=== PATIENT | female | born 1930 | race Caucasian/White ===

== ENCOUNTER 2016-11-25 16:06 | Emergency (ER) | payer MEDICARE, OTHER ==
[2016-11-25 16:12] VITALS: BP 125/66
--- NOTE | 2016-11-25 18:39 | ER Document Report ---
ED Extremity Problem, Lower - General Chief Complaint: Knee Injury Stated Complaint: KNEE INJURY Time seen by provider: 18:35 Mode of Arrival: Ambulatory Information source: Patient Notes: 86-year-old female presents to ED for right knee pain. She states she twisted her knee this morning when trying to get up. She has a history of diabetes with neuropathy. She had a knee support on her knee. Patient uses a walker to walk at home TRAVEL OUTSIDE OF THE [place] IN LAST 30 DAYS: No - HPI Location: Knee - Right knee pain minimal swelling noted Occurred: This morning Where: Home, Indoors Onset/Duration: Intermittent Quality of pain: Burning Severity: Moderate Pain Level: 3 Context: Twisted - States she thinks she twisted it this morning when she got up Recent injury: No Associated symptoms: Painful ambulation Exacerbated by: Movement, Walking Relieved by: Elevation, Ice, Rest - Related Data Allergies/Adverse Reactions: No Known Allergies Allergy (Unverified 12/14/10 18:16) Past Medical History - General Information source: Patient - Social History Smoking Status: Current Every Day Smoker Cigarette use (# per day): Yes - pack per day Chew tobacco use (# tins/day): No Smoking Education Provided: Yes - less than 1 minute Frequency of alcohol use: None Drug Abuse: None Lives with: Alone Family History: Reviewed & Not Pertinent Patient has suicidal ideation: No Patient has homicidal ideation: No - Past Medical History Cardiac Medical History: Reports: Hx Hypercholesterolemia, Hx Hypertension Pulmonary Medical History: Reports: Hx COPD EENT Medical History: Reports: None Neurological Medical History: Reports: Hx Cerebrovascular Accident. Denies: Hx Seizures Endocrine Medical History: Reports: Hx Diabetes Mellitus Type 2 Renal/ Medical History: Reports: None Malignancy Medical History: Reports: None Musculoskeltal Medical History: Reports Hx Arthritis, Reports Hx Gout Skin Medical History: Reports None Psychiatric Medical History: Reports: None Traumatic Medical History: Reports: None Infectious Medical History: Reports: None Past Surgical History: Reports: Hx Appendectomy, Hx Cholecystectomy - 2013, Hx Gynecologic Surgery - Laparoscopic surgery to help her in getting , Hx Tonsillectomy - Immunizations Hx Diphtheria, Pertussis, Tetanus Vaccination: Yes Hx Pneumococcal Vaccination: 12/17/06 Review of Systems - Review of Systems Constitutional: No symptoms reported EENT: No symptoms reported Cardiovascular: No symptoms reported Respiratory: No symptoms reported Gastrointestinal: No symptoms reported Genitourinary: No symptoms reported Female Genitourinary: No symptoms reported Musculoskeletal: Joint pain - Right knee pain, Muscle pain Skin: No symptoms reported Hematologic/Lymphatic: No symptoms reported Neurological/Psychological: No symptoms reported Physical Exam - Vital signs Vitals: Temp Pulse Resp BP Pulse Ox 98.4 F 93 18 125/66 96 11/25/16 16:11 11/25/16 16:11 11/25/16 16:11 11/25/16 16:11 11/25/16 16:11 Interpretation: Normal - General General appearance: Appears well, Alert - HEENT Head: Normocephalic, Atraumatic Eyes: Normal Pupils: PERRL - Respiratory Respiratory status: No respiratory distress Chest status: Nontender Breath sounds: Normal Chest palpation: Normal - Cardiovascular Rhythm: Regular Heart sounds: Normal auscultation Murmur: No - Abdominal Inspection: Normal Distension: No distension Bowel sounds: Normal Tenderness: Nontender Organomegaly: No organomegaly - Back Back: Normal, Nontender - Extremities General upper extremity: Normal inspection, Nontender, Normal color, Normal ROM , Normal temperature General lower extremity: Normal color. No: Kyara's sign Knee: Tender, Pain with ROM, Patellar tendon intact. No: Abrasion, Deformity, Dislocation, Drawer's test instability, Ecchymosis, Instability, Joint effusion , Laxity with varus stress, Popliteal fossa tender, Tender joint line, Unable to bear weight - Neurological Neuro grossly intact: Yes Cognition: Normal Orientation: AAOx4 Bradley Coma Scale Eye Opening: Spontaneous Bradley Coma Scale Verbal: Oriented Bradley Coma Scale Motor: Obeys Commands Bradley Coma Scale Total: 15 Speech: Normal Motor strength normal: LUE, RUE, LLE, RLE Sensory: Normal - Psychological Associated symptoms: Normal affect, Normal mood - Skin Skin Temperature: Warm Skin Moisture: Dry Skin Color: Normal Course - Re-evaluation Re-evalutation: 11/25/16 20:35 X-ray discussed with patient and family and written report given to family to take home for follow-up with [facility] doctor. - Vital Signs Vital signs: Temp Pulse Resp BP Pulse Ox 98.4 F 93 18 125/66 96 11/25/16 16:11 11/25/16 16:11 11/25/16 16:11 11/25/16 16:11 11/25/16 16:11 - Diagnostic Test Radiology reviewed: Image reviewed, Reports reviewed Discharge - Discharge Clinical Impression: Pain in right knee Qualifiers: Chronicity: chronic Qualified Code(s): M25.561 - Pain in right knee Condition: Stable Disposition: HOME, SELF-CARE Additional Instructions: Arthralgia Arthralgia is pain in the joints. We use the word arthralgia to describe joint pain where there's no history of injury, no known joint disease, and the joints are normal to examination. Arthralgia can be a symptom of an acute illness, such as influenza, hepatitis, or serum sickness. Sometimes the joint pain comes before any other symptoms. Arthralgia can also be an early symptom of joint disease, such as rheumatoid arthritis or lupus. If arthralgia is accompanied by an acute illness that explains the joint pain, such as mononucleosis, no further testing needs to be done. When there's no clear reason for the pain, tests may be done to see if there's an inflammatory disease of the joints. The usual treatment is anti-inflammatory medication, such as ibuprofen. Joint aches can be soothed with a heating pad or hot compress. If joints remain painful more than a few days, you'll need testing and followup. Return if a joint becomes swollen, red, or severely painful. Acetaminophen Acetaminophen may be taken for pain relief or fever control. It's much safer than aspirin, offering a wider range of "safe" dosages. It is safe during . Some brand names are Tylenol, Panadol, Datril, Anacin 3, Tempra, and Liquiprin. Acetaminophen can be repeated every four hours. The following are maximum recommended dosages: WEIGHT Dose Drops Elixir Chewable( 80mg) (LBS.) drprs=droppers tsp=teaspoon 6 40 mg .4 ml (1/2) 6-11 80 mg .8 ml (full) 1/2 tsp 1 tab 12-16 120 mg 1 1/2 drprs 3/4 tsp 1 1/2 tabs 17-23 160 mg 2 drprs 1 tsp 2 tabs 24-30 240 mg 3 drprs 1 1/2 tsp 3 tabs 30-35 320 mg 2 tsp 4 tabs 36-41 360 mg 2 1/4 tsp 4 1 /2 tabs 42-47 400 mg 2 1/2 tsp 5 tabs 48-53 480 mg 3 tsp 6 tabs 54-59 520 mg 3 1/4 tsp 6 1 /2 tabs 60-64 560 mg 3 1/2 tsp 7 tabs 65-70 600 mg 3 3/4 tsp 7 1 /2 tabs 71-76 640 mg 4 tsp 8 tabs 77-82 720 mg 4 1/2 tsp 9 tabs 83-88 800 mg 5 tsp 10 tabs >89 pounds or adults 650 mg to 900 mg Acetaminophen can be repeated every four hours. Maximum daily dose not to exceed 4000 mg. These maximum recommended dosages are slightly higher than the dosages written on the product container, but these dosages are very safe and well below the toxic dosage for acetaminophen. FOLLOW-UP CARE: If you have been referred to a physician for follow-up care, call the physician s office for an appointment as you were instructed or within the next two days. If you experience worsening or a significant change in your symptoms, notify the physician immediately or return to the Emergency Department at any time for re-evaluation. Referrals: GUERRERO SHIRLEY MD [Primary Care Provider] - Follow up as needed
== END 2016-11-25 18:42 | disposition home or self-care (01) ==
LOC: ER 16:06
DX: M25.561 Pain in right knee (principal); M79.89 Other specified soft tissue disorders; E11.40 Type 2 diabetes mellitus with diabetic neuropathy, unspecified; I10 Essential (primary) hypertension; J44.9 Chronic obstructive pulmonary disease, unspecified; F17.210 Nicotine dependence, cigarettes, uncomplicated; Z71.6 Tobacco abuse counseling; Z86.73 Personal history of transient ischemic attack (TIA), and cerebral infarction without residual deficits
CPT/HCPCS: 99283

== ENCOUNTER 2017-04-30 12:37 | Inpatient (IN) | payer MEDICARE, OTHER ==
[2017-04-30] MEDS ORDERED: NORMAL SALINE 1000 ML 1,000 ML IV ONE ×2 (12:50→13:38)
--- NOTE | 2017-04-30 12:54 | ER Document Report ---
ED GI/ - General Chief Complaint: General Weakness Stated Complaint: WEAKNESS Time Seen by Provider: 04/30/17 12:49 Information source: Patient Notes: 86-year-old female that presents with EMS secondary to multiple bouts of nonbloody diarrhea last evening with a low-grade fever. Vomiting 1. Patient states she could not sleep all evening secondary to multiple bouts of diarrhea. She denies to me any abdominal pain, cramping, flank pain, or dysuria. She denies any recent antibiotics. [place] TRAVEL OUTSIDE OF THE [place] IN LAST 30 DAYS: No - HPI Patient complains to provider of: Diarrhea Onset: Other - See above Timing/Duration: Gradual Quality of pain: No pain Severity at maximum: Moderate Severity in ED: Moderate Pain Level: Denies Location: Other - See above Vaginal bleeding (Compared to normal period): None Sexual history: Inactive Associated symptoms: Other - See above Exacerbated by: Denies Relieved by: Denies Similar symptoms previously: No - Related Data Allergies/Adverse Reactions: No Known Allergies Allergy (Verified 04/30/17 12:56) Past Medical History - Social History Smoking Status: Current Every Day Smoker Cigarette use (# per day): Yes Chew tobacco use (# tins/day): No Smoking Education Provided: No Frequency of alcohol use: None Family History: Reviewed & Not Pertinent - Past Medical History Cardiac Medical History: Reports: Hx Hypercholesterolemia, Hx Hypertension Pulmonary Medical History: Reports: Hx COPD Denies: Hx Tuberculosis Neurological Medical History: Reports: Hx Cerebrovascular Accident. Denies: Hx Seizures Endocrine Medical History: Reports: Hx Diabetes Mellitus Type 2 Renal/ Medical History: Denies: Hx Peritoneal Dialysis Musculoskeltal Medical History: Reports Hx Arthritis, Reports Hx Gout Skin Medical History: Denies Hx MRSA Past Surgical History: Reports: Hx Appendectomy, Hx Cholecystectomy - 2013, Hx Gynecologic Surgery - Laparoscopic surgery to help her in getting , Hx Tonsillectomy. Denies: Hx Hysterectomy, Hx Pacemaker - Immunizations Hx Diphtheria, Pertussis, Tetanus Vaccination: Yes Hx Pneumococcal Vaccination: 12/17/06 Review of Systems - Review of Systems Constitutional: Fever EENT: denies: Eye discharge, Nose discharge Cardiovascular: denies: Chest pain, Palpitations Respiratory: Cough. denies: Short of breath Gastrointestinal: Vomiting. denies: Abdomen distended, Abdominal pain, Blood streaked bowels Genitourinary: denies: Dysuria Musculoskeletal: denies: Leg swelling Skin: Other - no hives. denies: Rash Neurological/Psychological: Other - no slurred speech -: Yes All other systems reviewed and negative Physical Exam - Vital signs Vitals: Resp 20 04/30/17 12:37 Notes: Reviewed vital signs and nursing note as charted by RN. CONSTITUTIONAL: Patient does appear drowsy but responds to all questions appropriately HEAD: Normocephalic; atraumatic EYES: Sclerae non-icteric ENT: Normal nose; no rhinorrhea; moist mucous membranes NECK: Supple without meningismus; non-tender; no cervical lymphadenopathy, no masses CARD: Regular rate and rhythm; no murmurs, no clicks, no rubs, no gallops; symmetric distal pulses RESP: Normal chest excursion without splinting or tachypnea; breath sounds clear and equal bilaterally; no wheezes, no rhonchi, no rales ABD/GI: Normal bowel sounds; non-distended; soft, non-tender to deep palpation of all 4 quadrants of the abdomen with no rebound or guarding. No abdominal bruits or palpable masses BACK: The back appears normal and is non-tender to palpation, there is no CVA tenderness EXT: Normal ROM in all joints; non-tender to palpation; no cyanosis, no effusions, no edema SKIN: Normal color for age and race; warm; dry; good turgor; capillary refill < 2 seconds; no acute lesions noted NEURO: CN II through XII intact; moves all extremities equally; Motor and sensory function intact PSYCH: The patient's mood and manner are appropriate. Grooming and personal hygiene are appropriate. Course - Re-evaluation Re-evalutation: 04/30/17 12:53 Given the history and physical examination, we will provide a liter of fluid, obtain a liver panel, lipase, urinalysis, and reassess the patient. Patient currently has no focal neurological deficits. Blood pressure is stable and the patient is mildly tachycardic. Temperature is recorded. 04/30/17 13:12 EKG shows a heart rate of 105, sinus tachycardia, left axis deviation, no obvious ST elevation or depression. Old EKG shows no acute change 04/30/17 13:40 White blood cell count and lactic acid is recorded. We have added another liter of fluid to make at 30 cc/kg. I have started the patient on Zosyn. I have added a CT scan of the abdomen and pelvis. 04/30/17 14:51 Chest x-ray shows normal heart, normal mediastinum, no fractures, normal lung parson, no pneumothorax. 04/30/17 15:12 CT scan of the abdomen and pelvis as recorded. I spoke to Dr. pena the radiologist who states he sees some air in the bladder wall consistent with a severe urinary tract infection. I have provided Rocephin. To the previous antibiotic. He also states he sees a small kidney cyst like lesion. I have relayed this to the admitting doctor, Dr. Salazar. - Vital Signs Vital signs: Temp Pulse Resp BP Pulse Ox 99.2 F 20 92/43 L 96 04/30/17 12:40 04/30/17 13:22 04/30/17 13:22 04/30/17 13:22 - Laboratory Result Diagrams: 04/30/17 12:41 04/30/17 12:41 Laboratory results interpreted by me: 04/30/17 04/30/17 04/30/17 12:41 12:41 12:41 WBC 22.0 H Plt Count 131 L Seg Neuts % (Manual) 82 H Band Neutrophils % 6 H Lymphocytes % (Manual) 7 L Abs Neuts (Manual) 19.3 H BUN 25 H Est GFR (Non-Af Amer) 54 L Glucose 213 H Lactic Acid 2.9 H Total Protein 6.0 L Albumin 3.4 L Urine Protein Urine Blood Urine Urobilinogen Ur Leukocyte Esterase 04/30/17 13:20 WBC Plt Count Seg Neuts % (Manual) Band Neutrophils % Lymphocytes % (Manual) Abs Neuts (Manual) BUN Est GFR (Non-Af Amer) Glucose Lactic Acid Total Protein Albumin Urine Protein 100 H Urine Blood MODERATE H Urine Urobilinogen 2.0 H Ur Leukocyte Esterase SMALL H Critical Care Note - Critical Care Note Total time excluding time spent on procedures (mins): 35 Discharge - Discharge Clinical Impression: Sepsis due to urinary tract infection Condition: Serious Disposition: ADMITTED INPATIENT Admitting Provider: [facility] Unit Admitted: [facility]
[2017-04-30 13:08] LABS: PROTHROMBIN TIME 14.9 SEC (11.4-15.4)
[2017-04-30 13:13] LABS: VENOUS BLOOD BASE EXCESS -0.1 mmol/L; VENOUS BLOOD HCO3 25.2 mmol/L (20-32); VENOUS BLOOD PCO2 43.7 mmHg (35-63); VENOUS BLOOD PH 7.38 (7.30-7.42)
[2017-04-30 13:18] LABS: HEMATOCRIT 45.9 % (36.0-47.0); HGB HCT DIFFERENCE -0.9; MEAN CORPUSCULAR HEMOGLOBIN 30.4 pg (27.0-33.4); MEAN CORPUSCULAR HGB CONC 32.7 g/dL (32.0-36.0); MEAN CORPUSCULAR VOLUME 93 fl (80-97); RED BLOOD COUNT 4.93 10^6/uL (3.72-5.28); RED CELL DISTRIBUTION WIDTH 13.5 % (11.5-14.0)
[2017-04-30 13:31] LABS: ALANINE AMINOTRANSFERASE 33 U/L (9-52); ALBUMIN 3.4 g/dL (3.5-5.0); ALKALINE PHOSPHATASE 58 U/L (38-126); ANION GAP 12 (5-19); ASPARTATE AMINO TRANSFERASE 23 U/L (14-36); BILIRUBIN,DIRECT 0.4 mg/dL (0.0-0.4); BILIRUBIN,TOTAL 1.2 mg/dL (0.2-1.3); BLOOD UREA NITROGEN 25 mg/dL (7-20); CARBON DIOXIDE 26 mmol/L (22-30); CHLORIDE 100 mmol/L (98-107); CREATININE RESULT 0.98 mg/dL (0.52-1.25); GLUCOSE 213 mg/dL (75-110); POTASSIUM 3.7 mmol/L (3.6-5.0); SODIUM 138.2 mmol/L (137-145)
[2017-04-30] MEDS ORDERED: PIPERACILLIN/TAZOBACTAM 3.375 GM VIAL IV ONE (13:39)
--- NOTE | 2017-04-30 13:50 | RADIOLOGY REPORT (SQ) ---
EXAM DESCRIPTION: CHEST SINGLE VIEW COMPLETED DATE/TIME: 04/30/2017 1:14 pm REASON FOR STUDY: bed 1 sepsis protocol COMPARISON: August 2016 EXAM PARAMETERS: NUMBER OF VIEWS: One view. TECHNIQUE: Single frontal radiographic view of the chest acquired. RADIATION DOSE: NA LIMITATIONS: None. FINDINGS: LUNGS AND PLEURA: No opacities, masses or pneumothorax. No pleural effusion. Again there is evidence for obstructive lung disease. MEDIASTINUM AND HILAR STRUCTURES: No masses. Contour normal. HEART AND VASCULAR STRUCTURES: Heart normal in size. Normal vasculature. BONES: No acute findings. HARDWARE: None in the chest. OTHER: No other significant finding. IMPRESSION: No significant interval change. No acute changes. Other findings as noted above TECHNICAL DOCUMENTATION: JOB ID: [id number]
[2017-04-30 13:53] LABS: BASOPHILS % (MANUAL) 0 % (0-2); EOSINOPHILS % (MANUAL) 0 % (0-6); TOTAL CELLS COUNTED 100
[2017-04-30 13:54] LABS: APPEARANCE,URINE SLIGHTLY-CLOUDY; BILIRUBIN,URINE NEGATIVE (NEGATIVE); GLUCOSE, URINE NEGATIVE (NEGATIVE); KETONES,URINE NEGATIVE (NEGATIVE); LEUKOCYTE ESTERASE,URINE SMALL (NEGATIVE); NITRITE,URINE NEGATIVE (NEGATIVE); PROTEIN,URINE 100 mg/dL (NEGATIVE)
[2017-04-30 14:04] LABS: BAND NEUTROPHILS % (MANUAL) 6 % (3-5)
[2017-04-30 14:05] LABS: LYMPHOCYTES % (MANUAL) 7 % (13-45)
[2017-04-30 14:06] LABS: TOXIC VACUOLATION PRESENT
[2017-04-30 14:08] LABS: RBC MORPHOLOGY COMMENT NORMO-CYTIC/CHROMIC; TOXIC GRANULATION SLIGHT
[2017-04-30] MEDS ORDERED: CEFTRIAXONE RTU 1 GM/D5W 50 ML IV ONE (14:49)
--- NOTE | 2017-04-30 15:19 | RADIOLOGY REPORT (SQ) ---
EXAM DESCRIPTION: CT ABD/PELVIS WITH IV ONLY COMPLETED DATE/TIME: 04/30/2017 2:43 pm REASON FOR STUDY: 1, diarrhea; fever; elevated lactate COMPARISON: None. TECHNIQUE: CT scan of the abdomen and pelvis performed using helical scanning technique with dynamic intravenous contrast injection. No oral contrast. Images reviewed with lung, soft tissue, and bone windows. Reconstructed coronal and sagittal MPR images reviewed. Delayed images for evaluation of the urinary system also acquired. All images stored on PACS. All CT scanners at this facility use dose modulation, iterative reconstruction, and/or weight based d osing when appropriate to reduce radiation dose to as low as reasonably achievable (ALARA). [facility]: Dose Right [facility]: CareDose [facility]: Dose Right [facility]: Teradose 4D [facility]: [employer] CONTRAST TYPE AND DOSE: contrast/concentration: Isovue mg/ml; Total Contrast Delivered: 79.0 ml; To tej Saline Delivered: 65.3 ml RENAL FUNCTION: Creatinine 0.98 RADIATION DOSE: Up-to-date CT equipment and radiation dose reduction techniques were employed. CTDIv ol: 12.3 - 16.1 mGy. DLP: 1430 mGy-cm.. LIMITATIONS: None. FINDINGS: LOWER CHEST: Predominately linear densities are identified in the lung bases most consiste nt with atelectatic changes. LIVER: Normal size. No masses. No dilated ducts. SPLEEN: Normal size. No focal lesions. PANCREAS: No masses. No significant calcifications. No adjacent inflammation or peripancreatic fluid collections. Pancreatic duct not dilated. GALLBLADDER: Status post cholecystectomy. ADRENAL GLANDS: No significant masses or asymmetry. RIGHT KIDNEY AND URETER: A 2.1 cm in diameter relative low density mass is identified in the upper po le of the right kidney with CT numbers higher than would be anticipated for a simple cyst. This coul d represent a complicated cyst or solid mass. The possibility of a renal abscess cannot be excluded. There are couple other tiny relative low density areas which are too small to further characterize by CT. No significant calcifications. No hydronephrosis or hydroureter. LEFT KIDNEY AND URETER: No solid masses. There are a couple tiny relative low density areas which ar e too small to further characterize by CT. No significant calcifications. No hydronephrosis or hy droureter. AORTA AND VESSELS: No aneurysm. No dissection. Renal arteries, SMA, celiac without stenosis. RETROPERITONEUM: No retroperitoneal adenopathy, hemorrhage or masses. BOWEL AND PERITONEAL CAVITY: No masses or inflammatory changes. No free fluid or peritoneal masses. APPENDIX: Not identified PELVIS: No mass. No free fluid. There is fairly diffuse air within the bladder wall consistent with emphysematous cystitis. Small amount of air is also identified within the bladder lumen itself. ABDOMINAL WALL: No masses. No hernias. BONES: Degenerative changes are identified in the lumbar spine. OTHER: No other significant finding. 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 A 2.1 cm in d iameter relative low density mass is identified in the upper pole of the right kidney with CT numbers higher than would be anticipated for simple cyst. This could represent a complicated cyst or solid mass. The possibility of an renal abscess cannot be excluded. Other findings as noted above COMMENT: Pertinent findings on the imaging study reported as a CRITICAL RESULT to MEGGAN MENA MD at 15:12 on 04/30/2017. Category of Critical Result: Emphysematous cystitis TECHNICAL DOCUMENTATION: JOB ID: [id number] Quality ID # [id number]: Final reports with documentation of one or more dose reduction techniques (e.g., Au tomated exposure control, adjustment of the mA and/or kV according to patient size, use of iterative reconstruction technique) 2010 [employer] All Rights Reserved
[2017-04-30] MEDS ORDERED: DEXTROSE 40% GEL 15 GM TUBE X 2 PO PRN (17:35)
[2017-04-30] MEDS ORDERED: DEXTROSE 50%-WATER SYRINGE 12.5 GM/25 ML DOSE IV PRN (17:35)
[2017-04-30] MEDS ORDERED: DEXTROSE 50%-WATER SYRINGE 25 GM/50 ML DOSE IV PRN (17:35)
[2017-04-30] MEDS ORDERED: GLUCAGON,HUMAN RECOMB 1 MG INJ IM PRN (17:35)
[2017-04-30] MEDS ORDERED: DEXTROSE 40% GEL 15 GM TUBE PO PRN (17:35)
[2017-04-30] MEDS: CIPROFLOXACIN 400 MG/D5W RTU 400 MG/200 ML RTUPB IV SCH (18:32)
[2017-04-30] MEDS: ATORVASTATIN CALCIUM 40 MG TABLET PO SCH (21:49)
[2017-04-30] MEDS: CILOSTAZOL 100 MG TABLET PO SCH (21:50)
[2017-04-30] MEDS: GABAPENTIN 300 MG CAPSULE PO SCH (21:50)
[2017-04-30] MEDS: INSULIN GLARGINE,HUM.REC.ANLOG 300 UNIT/3 ML INSULN.PEN SUBCUT SCH (21:57)
[2017-05-01] MEDS: CIPROFLOXACIN 400 MG/D5W RTU 400 MG/200 ML RTUPB IV SCH ×2 (06:22→17:46)
[2017-05-01] MEDS: GABAPENTIN 300 MG CAPSULE PO SCH ×3 (06:23→22:35)
[2017-05-01] MEDS ORDERED: INSULIN ASPART 12 UNIT SUBCUT SCH (08:00)
[2017-05-01] MEDS: INSULIN LISPRO 100 UNIT/ML 3 ML VIAL SUBCUT SCH ×3 (08:36→17:13)
[2017-05-01] MEDS: INSULIN LISPRO 100 UNIT/ML 3 ML VIAL SUBCUT PRN ×2 (08:37→13:17)
[2017-05-01] MEDS ORDERED: (PENDING PHARMACY ID) (Telmisartan/Hydrochlorothiazid [Micardis Hct 80-25 Mg Tablet] 1 TAB PO SCH (10:00)
[2017-05-01] MEDS: HYDROCHLOROTHIAZIDE 25 MG TABLET PO SCH (10:57)
[2017-05-01] MEDS: ASPIRIN 81 MG TABLET, CHEWABLE PO SCH (10:58)
[2017-05-01] MEDS: AMLODIPINE BESYLATE 5 MG TABLET PO SCH (10:58)
[2017-05-01] MEDS: METFORMIN HCL 500 MG TABLET PO SCH (10:59)
[2017-05-01] MEDS: CLOPIDOGREL BISULFATE 75 MG TABLET PO SCH (11:00)
[2017-05-01] MEDS: LOSARTAN POTASSIUM 50 MG TABLET PO SCH (11:01)
[2017-05-01] MEDS: ALLOPURINOL 100 MG TABLET PO SCH (11:01)
[2017-05-01] MEDS: CILOSTAZOL 100 MG TABLET PO SCH ×2 (11:02→22:35)
--- NOTE | 2017-05-01 20:52 | PDOC H&P ---
History of Present Illness Admission Date/PCP: 04/30/17 15:18 GUERRERO SHIRLEY MD History of Present Illness: SJ LOZOYA is a 86 year old female, She is Dr. Shirley's patient, she came to the emergency room for evaluation of many episodes of passage of non bloody diarrhea, in the emergency room she was evaluated, part of the evaluation included blood work and also CT scan of the abdomen and pelvis with IV contrast , the hemogram showed elevated white cell count, 22,[address] scan showed an incidental finding of a 2.1 cm size relative low density mass in the upper pole of the right kidney,differential diagnosis include a solid mass versus a complicated cyst and a renal abscess could not be completely excluded also found was a fairly diffuse air within the urinary bladder consistent with emphysematous cystitis. Patient is a poor historian she is of advanced age still actively smoking cigarettes, she is a diabetic. I spoke to the son ,he stated that she recently had a vascular procedure done in [facility] in [place], [place] because she has peripheral vascular disease. Because of the severe leukocytosis and the CAT scan findings of severe cystitis and also the abnormal urinalysis the emergency room physician is recommending inpatient care for this patient. Past Medical History Cardiac Medical History: Reports: Hyperlipidema, Hypertension, Peripheral Vascular Disease Pulmonary Medical History: Reports: Chronic Obstructive Pulmonary Disease (COPD) Denies: Tuberculosis Neurological Medical History: Denies: Seizures Endocrine Medical History: Reports: Diabetes Mellitus Type 2 Musculoskeltal Medical History: Reports: Arthritis, Gout Past Surgical History Past Surgical History: Reports: Appendectomy, Cholecystectomy - 2013, Tonsillectomy Denies: Hysterectomy, Pacemaker Social History Smoking Status: Current Every Day Smoker Cigarettes Packs Per Day: 1.5 Frequency of Alcohol Use: None Hx Recreational Drug Use: No Drugs: None Hx Prescription Drug Abuse: No Family History Family History: Reviewed & Not Pertinent Parental Family History Reviewed: Yes Children Family History Reviewed: Yes Sibling(s) Family History Reviewed.: Yes Medication/Allergy Home Medications: Allopurinol [Zyloprim 100 mg Tablet] 100 mg PO DAILY 04/30/17 Amlodipine Besylate [Norvasc 5 mg Tablet] 5 mg PO DAILY 04/30/17 Aspirin [Aspirin 81 mg Chewable Tablet] 81 mg PO DAILY 04/30/17 Atorvastatin Calcium [Lipitor 40 mg Tablet] 40 mg PO QHS 04/30/17 Cilostazol 50 mg PO Q12 04/30/17 Clopidogrel Bisulfate [Plavix 75 mg Tablet] 75 mg PO DAILY 04/30/17 Gabapentin [Neurontin 300 mg Capsule] 300 mg PO Q8 04/30/17 Insulin Aspart [Novolog Flexpen] 12 unit SUBCUT AC 04/30/17 Insulin Glargine,Hum.rec.anlog [Lantus Solostar] 35 unit SQ QHS 04/30/17 Metformin HCl [Glucophage] 1,000 mg PO DAILY 04/30/17 Telmisartan/Hydrochlorothiazid [Micardis HCT 80-25 mg Tablet] 1 tab PO DAILY Allergies/Adverse Reactions: No Known Allergies Allergy (Verified 04/30/17 12:56) Review of Systems Constitutional: ABSENT: chills, fever(s), headache(s), weight gain, weight loss Eyes: ABSENT: visual disturbances Ears: ABSENT: hearing changes Cardiovascular: ABSENT: chest pain, dyspnea on exertion, edema, orthropnea, palpitations Respiratory: ABSENT: cough, hemoptysis Gastrointestinal: PRESENT: diarrhea Genitourinary: PRESENT: dysuria Musculoskeletal: ABSENT: joint swelling Integumentary: ABSENT: rash, wounds Neurological: ABSENT: abnormal gait, abnormal speech, confusion, dizziness, focal weakness, syncope Psychiatric: ABSENT: anxiety, depression, homidical ideation, suicidal ideation Endocrine: ABSENT: cold intolerance, heat intolerance, menstrual abnormalities, polydipsia, polyuria Hematologic/Lymphatic: ABSENT: easy bleeding, easy bruising, lymphadenopathy Physical Exam Vital Signs: Temp Pulse Resp BP Pulse Ox 100.1 F 97 18 119/30 L 94 05/01/17 19:27 05/01/17 19:27 05/01/17 19:27 05/01/17 19:27 05/01/17 19:27 Intake & Output 04/30/17 05/01/17 05/02/17 06:59 06:59 06:59 Intake Total 410 1170 Output Total 550 900 Balance -140 270 Weight 70.4 kg General appearance: PRESENT: well-developed Head exam: PRESENT: atraumatic, normocephalic Eye exam: PRESENT: conjunctiva pink, EOMI, PERRLA. ABSENT: scleral icterus Ear exam: PRESENT: normal external ear exam Mouth exam: PRESENT: moist, tongue midline Neck exam: PRESENT: full ROM Respiratory exam: PRESENT: decreased breath sounds Cardiovascular exam: PRESENT: RRR, +S1, +S2 Pulses: PRESENT: normal dorsalis pedis pul, +2 pedal pulses bilateral Vascular exam: PRESENT: normal capillary refill GI/Abdominal exam: PRESENT: normal bowel sounds, soft Rectal exam: PRESENT: deferred Neurological exam: PRESENT: alert Skin exam: PRESENT: dry, intact, warm. ABSENT: cyanosis, rash Results Impressions: Chest X-Ray 04/30/17 12:40 IMPRESSION: No significant interval change. No acute changes. Other findings as noted above Abdomen/Pelvis CT 04/30/17 13:39 IMPRESSION: Air is identified in bladder wall consistent with emphysematous cystitis. A 2.1 cm in diameter relative low density mass is identified in the upper pole of the right kidney with CT numbers higher than would be anticipated for simple cyst. This could represent a complicated cyst or solid mass. The possibility of an renal abscess cannot be excluded. 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
--- NOTE | 2017-05-01 21:00 | PDOC PROGRESS REPORT ---
Subjective Progress Note for:: 05/01/17 Subjective:: She was seen by the bedside, the blood culture is growing gram-negative rods, the urine culture is growing gram-negative rods. The CAT scan findings was discussed with the son and the patient ,there is a suspicious mass that was incidentally found on the upper pole of the right kidney, the CAT scan could not differentiate this mass form a complicated cyst or a solid mass MRI of this mass to be obtained. Physical Exam Vital Signs: Temp Pulse Resp BP Pulse Ox 100.1 F 97 18 119/30 L 94 05/01/17 19:27 05/01/17 19:27 05/01/17 19:27 05/01/17 19:27 05/01/17 19:27 Intake & Output 04/30/17 05/01/17 05/02/17 06:59 06:59 06:59 Intake Total 410 1170 Output Total 550 900 Balance -140 270 Weight 70.4 kg General appearance: PRESENT: no acute distress Eye exam: PRESENT: PERRLA Respiratory exam: PRESENT: clear to auscultation betzaida Cardiovascular exam: PRESENT: +S1, +S2 GI/Abdominal exam: PRESENT: soft Neurological exam: PRESENT: alert Results Impressions: Chest X-Ray 04/30/17 12:40 IMPRESSION: No significant interval change. No acute changes. Other findings as noted above Abdomen/Pelvis CT 04/30/17 13:39 IMPRESSION: Air is identified in bladder wall consistent with emphysematous cystitis. A 2.1 cm in diameter relative low density mass is identified in the upper pole of the right kidney with CT numbers higher than would be anticipated for simple cyst. This could represent a complicated cyst or solid mass. The possibility of an renal abscess cannot be excluded. 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
[2017-05-01] MEDS: ATORVASTATIN CALCIUM 40 MG TABLET PO SCH (22:35)
[2017-05-01] MEDS: INSULIN GLARGINE,HUM.REC.ANLOG 300 UNIT/3 ML INSULN.PEN SUBCUT SCH (22:40)
[2017-05-01 22:42] LABS: URINE BARBITURATES SCREEN NEGATIVE; URINE METHADONE SCREEN NEGATIVE; URINE OPIATES LOW NEGATIVE; URINE PHENCYCLIDINE SCREEN NEGATIVE
[2017-05-01 23:16] LABS: LIPASE 42.9 U/L (23-300)
[2017-05-01 23:30] LABS: TROPONIN I 0.064 ng/mL
[2017-05-01 23:48] LABS: THYROID STIMULATING HORMONE 2.97 uIU/mL (0.47-4.68)
--- NOTE | 2017-05-02 01:23 | RADIOLOGY REPORT (SQ) ---
EXAM DESCRIPTION: MRI ABDOMEN COMBO COMPLETED DATE/TIME: 05/01/2017 9:53 pm REASON FOR STUDY: MRI RIGHT KIDNEY COMPARISON: CT dated 04/30/2017. TECHNIQUE: Multiplanar multisequence imaging performed without and with contrast including sagittal, axial and coronal T2, axial T1, axial gradient fat sat T1, axial, sagittal and coronal fat sat T1 po st contrast. CONTRAST TYPE AND DOSE: 20 mL Prohance. RENAL FUNCTION: GFR > 60. LIMITATIONS: None. FINDINGS: LIVER: Normal size. No masses. No dilated ducts. CBD normal. SPLEEN: Normal size. No focal lesions. PANCREAS: No masses. No adjacent inflammation or peripancreatic fluid collections. Pancreatic duct no t dilated. GALLBLADDER: Surgically absent. ADRENAL GLANDS: No significant masses or asymmetry. RIGHT KIDNEY AND URETER: 1.6 cm in the anterior renal cortex with generally fluid signal. Peripheral decreased signal likely due to hemosiderin or other blood products. No enhancement on postcontrast images. 1.2 cm lesion in the posterior renal cortex with intermediate signal and questionable periph eral enhancement on post-contrast imaging. Additional nonenhancing cortical lesions with signal cons istent with simple cysts. No hydronephrosis. LEFT KIDNEY AND URETER: Nonenhancing cortical lesions with signal of simple cysts. No solid masses. No hydronephrosis. AORTA AND VESSELS: No aneurysm. No dissection. Renal arteries, SMA, celiac without stenosis. RETROPERITONEUM: No retroperitoneal adenopathy, hemorrhage or masses. BOWEL: No visualized masses. No inflammation. No significant dilatation. ABDOMINAL WALL AND PERITONEUM: No hernias. No free fluid. BONES: No acute or significant findings. OTHER: No other significant finding. IMPRESSION: MULTIPLE CORTICAL CYSTS IN BOTH KIDNEYS. NONENHANCING 1.6 CM LESION IN THE ANTERIOR COR JOSE OF THE RIGHT KIDNEY PROBABLY DUE TO A HEMORRHAGIC CYST. 1.2 CM LESION IN THE POSTERIOR CORTEX OF THE RIGHT KIDNEY HAS POSSIBLE PERIPHERAL ENHANCEMENT. POSSIBLY COMPLEX CYST BUT CANNOT EXCLUDE A SM ALL TUMOR. RECOMMEND FOLLOWUP MRI IN 6 MONTHS FOR RE-EVALUATION. TECHNICAL DOCUMENTATION: JOB ID: [id number] [employer]- All Rights Reserved
[2017-05-02] MEDS: CIPROFLOXACIN 400 MG/D5W RTU 400 MG/200 ML RTUPB IV SCH (05:35)
[2017-05-02] MEDS: GABAPENTIN 300 MG CAPSULE PO SCH ×3 (05:36→22:56)
[2017-05-02 05:43] LABS: ABSOLUTE EOSINOPHILS # (AUTO) 0.1 10^3/uL (0.0-0.6); ABSOLUTE LYMPHOCYTES (AUTO) 1.1 10^3/uL (0.5-4.7); BASOPHILS % (AUTO) 0.2 % (0-2); EOSINOPHILS % (AUTO) 0.9 % (0-6); HEMATOCRIT 41.6 % (36.0-47.0); HEMOGLOBIN 13.5 g/dL (12.0-15.5); HGB HCT DIFFERENCE -1.1; LYMPHOCYTES % (AUTO) 7.1 % (13-45); MEAN CORPUSCULAR HGB CONC 32.4 g/dL (32.0-36.0); MEAN CORPUSCULAR VOLUME 93 fl (80-97); MONOCYTES % (AUTO) 6.8 % (3-13); RED BLOOD COUNT 4.49 10^6/uL (3.72-5.28); RED CELL DISTRIBUTION WIDTH 13.5 % (11.5-14.0); WHITE BLOOD COUNT 15.3 10^3/uL (4.0-10.5)
--- NOTE | 2017-05-02 05:58 | EKG REPORT ---
SEVERITY:- OTHERWISE NORMAL ECG - SINUS TACHYCARDIA BORDERLINE LEFT AXIS DEVIATION : Confirmed by: Fauzia Montero MD 02-May-2017 05:57:57
[2017-05-02 06:05] LABS: ALANINE AMINOTRANSFERASE 35 U/L (9-52); ALBUMIN 2.7 g/dL (3.5-5.0); ALKALINE PHOSPHATASE 50 U/L (38-126); ANION GAP 6 (5-19); ASPARTATE AMINO TRANSFERASE 24 U/L (14-36); BILIRUBIN,DIRECT 0.3 mg/dL (0.0-0.4); BILIRUBIN,TOTAL 0.6 mg/dL (0.2-1.3); BLOOD UREA NITROGEN 26 mg/dL (7-20); CALCIUM 9.7 mg/dL (8.4-10.2); CARBON DIOXIDE 29 mmol/L (22-30); CHLORIDE 104 mmol/L (98-107); CHOLESTEROL 80.81 mg/dL (0-200); Direct HDL 25 mg/dL (>40); GLUCOSE 137 mg/dL (75-110); POTASSIUM 3.6 mmol/L (3.6-5.0); TOTAL PROTEIN 5.2 g/dL (6.3-8.2); TRIGLYCERIDES 138 mg/dL (<150)
[2017-05-02 06:18] LABS: DIRECT LDL < 30 mg/dL (<100)
[2017-05-02] MEDS: METFORMIN HCL 500 MG TABLET PO SCH (08:53)
[2017-05-02] MEDS: CILOSTAZOL 100 MG TABLET PO SCH ×2 (08:54→22:55)
[2017-05-02] MEDS: HYDROCHLOROTHIAZIDE 25 MG TABLET PO SCH (08:54)
[2017-05-02] MEDS: ALLOPURINOL 100 MG TABLET PO SCH (08:55)
[2017-05-02] MEDS: CLOPIDOGREL BISULFATE 75 MG TABLET PO SCH (08:55)
[2017-05-02] MEDS: ASPIRIN 81 MG TABLET, CHEWABLE PO SCH (08:55)
[2017-05-02] MEDS: ENOXAPARIN SODIUM INJ 40 MG/0.4 ML DISP.SYRIN SUBCUT SCH (08:55)
[2017-05-02] MEDS: INSULIN LISPRO 100 UNIT/ML 3 ML VIAL SUBCUT SCH ×3 (09:01→18:16)
[2017-05-02] MEDS: LOSARTAN POTASSIUM 50 MG TABLET PO SCH (11:19)
[2017-05-02] MEDS: AMLODIPINE BESYLATE 5 MG TABLET PO SCH (11:20)
[2017-05-02] MEDS: INSULIN LISPRO 100 UNIT/ML 3 ML VIAL SUBCUT PRN ×2 (11:21→18:16)
[2017-05-02] MEDS: CEFAZOLIN SODIUM 2 GM in DEXTROSE 5%-WATER 100 ML IV SCH (17:14)
[2017-05-02] MEDS ORDERED: DILTIAZEM HCL/D5W 125 MG/125 ML RTUINJ IV ONE (19:03)
[2017-05-02] MEDS ORDERED: DILTIAZEM HCL/D5W 125 MG/125 ML RTUINJ IV PRN (19:45)
--- NOTE | 2017-05-02 21:51 | PDOC PROGRESS REPORT ---
Subjective Progress Note for:: 05/02/17 Subjective:: She was seen by the bedside, the urine culture grew Klebsiella , MRI of the kidney was done today the lesion that was found on CAT scan that was not well characterized, on the MRI it came back as a cyst repeat MRI in 6 months was suggested or recommended. The noted episode of narrow complex tachycardia on the telemetry, there was spontaneous conversion to sinus rhythm. Physical Exam Vital Signs: Temp Pulse Resp BP Pulse Ox 98.3 F 78 22 H 105/36 L 90 L 05/02/17 19:51 05/02/17 21:11 05/02/17 19:51 05/02/17 21:11 05/02/17 19:51 Intake & Output 05/01/17 05/02/17 05/03/17 06:59 06:59 06:59 Intake Total 400 1870 922 Output Total 550 1100 Balance -150 770 922 Weight 70.4 kg 71.4 kg General appearance: PRESENT: no acute distress Eye exam: PRESENT: PERRLA Respiratory exam: PRESENT: clear to auscultation betzaida Cardiovascular exam: PRESENT: +S1, +S2 GI/Abdominal exam: PRESENT: soft Neurological exam: PRESENT: alert Results Laboratory Results: 05/02/17 04:51 05/02/17 04:51 05/01/17 05/01/17 05/01/17 22:50 22:50 22:50 WBC RBC Hgb Hct MCV MCH MCHC RDW Plt Count Seg Neutrophils % Lymphocytes % Monocytes % Eosinophils % Basophils % Absolute Neutrophils Absolute Lymphocytes Absolute Monocytes Absolute Eosinophils Absolute Basophils Sodium Potassium Chloride Carbon Dioxide Anion Gap BUN Creatinine Est GFR ( Amer) Est GFR (Non-Af Amer) Glucose Calcium Total Bilirubin AST ALT Alkaline Phosphatase Ammonia < 8.7 L Total Protein Albumin Triglycerides Cholesterol LDL Cholesterol Direct VLDL Cholesterol HDL Cholesterol Amylase 65 Lipase 42.9 TSH 2.97 Free T4 1.12 05/02/17 05/02/17 04:51 04:51 WBC 15.3 H RBC 4.49 Hgb 13.5 Hct 41.6 MCV 93 MCH 30.0 MCHC 32.4 RDW 13.5 Plt Count 108 L Seg Neutrophils % 85.0 H Lymphocytes % 7.1 L Monocytes % 6.8 Eosinophils % 0.9 Basophils % 0.2 Absolute Neutrophils 13.0 H Absolute Lymphocytes 1.1 Absolute Monocytes 1.0 Absolute Eosinophils 0.1 Absolute Basophils 0.0 Sodium 139.0 Potassium 3.6 Chloride 104 Carbon Dioxide 29 Anion Gap 6 BUN 26 H Creatinine 0.80 Est GFR ( Amer) > 60 Est GFR (Non-Af Amer) > 60 Glucose 137 H Calcium 9.7 Total Bilirubin 0.6 AST 24 ALT 35 Alkaline Phosphatase 50 Ammonia Total Protein 5.2 L Albumin 2.7 L Triglycerides 138 Cholesterol 80.81 LDL Cholesterol Direct < 30 VLDL Cholesterol 28.0 HDL Cholesterol 25 L Amylase Lipase TSH Free T4 05/01/17 05/01/17 22:50 22:50 Creatine Kinase 127 Troponin I 0.064 NT-Pro-B Natriuret Pep 2060 H Impressions: Chest X-Ray 04/30/17 12:40 IMPRESSION: No significant interval change. No acute changes. Other findings as noted above Abdomen/Pelvis CT 04/30/17 13:39 IMPRESSION: Air is identified in bladder wall consistent with emphysematous cystitis. A 2.1 cm in diameter relative low density mass is identified in the upper pole of the right kidney with CT numbers higher than would be anticipated for simple cyst. This could represent a complicated cyst or solid mass. The possibility of an renal abscess cannot be excluded. Other findings as noted above Abdomen MRI 05/01/17 00:00 IMPRESSION: MULTIPLE CORTICAL CYSTS IN BOTH KIDNEYS. NONENHANCING 1.6 CM LESION IN THE ANTERIOR CORTEX OF THE RIGHT KIDNEY PROBABLY DUE TO A HEMORRHAGIC CYST. 1.2 CM LESION IN THE POSTERIOR CORTEX OF THE RIGHT KIDNEY HAS POSSIBLE PERIPHERAL ENHANCEMENT. POSSIBLY COMPLEX CYST BUT CANNOT EXCLUDE A SMALL TUMOR. RECOMMEND FOLLOWUP MRI IN 6 MONTHS FOR RE-EVALUATION. Assessment & Plan - Diagnosis (1) Sepsis due to urinary tract infection Is this a current diagnosis for this admission?: Yes (2) Diabetes mellitus Qualifiers: Diabetes mellitus type: type 2 Diabetes mellitus complication status: without complication Diabetes mellitus petroleum terminal plant operator insulin use: without petroleum terminal plant operator use Qualified Code(s): E11.9 - Type 2 diabetes mellitus without complications Is this a current diagnosis for this admission?: Yes (3) Urinary tract infection due to Klebsiella species Is this a current diagnosis for this admission?: YesPlan: Continue IV antibiotic (4) Cyst of kidney, acquired Is this a current diagnosis for this admission?: Yes (5) Narrow complex tachycardia Is this a current diagnosis for this admission?: Yes
[2017-05-02] MEDS: ATORVASTATIN CALCIUM 40 MG TABLET PO SCH (22:55)
[2017-05-02] MEDS: INSULIN GLARGINE,HUM.REC.ANLOG 300 UNIT/3 ML INSULN.PEN SUBCUT SCH (23:04)
[2017-05-03 05:23] LABS: ABSOLUTE BASOPHILS # (AUTO) 0.1 10^3/uL (0.0-0.2); ABSOLUTE EOSINOPHILS # (AUTO) 0.2 10^3/uL (0.0-0.6); ABSOLUTE LYMPHOCYTES (AUTO) 1.2 10^3/uL (0.5-4.7); ABSOLUTE MONOCYTES (AUTO) 0.9 10^3/uL (0.1-1.4); ABSOLUTE NEUT (AUTO) 8.1 10^3/uL (1.7-8.2); BASOPHILS % (AUTO) 0.6 % (0-2); EOSINOPHILS % (AUTO) 1.7 % (0-6); HEMATOCRIT 40.5 % (36.0-47.0); HEMOGLOBIN 13.7 g/dL (12.0-15.5); HGB HCT DIFFERENCE 0.6; LYMPHOCYTES % (AUTO) 11.4 % (13-45); MEAN CORPUSCULAR HEMOGLOBIN 31.3 pg (27.0-33.4); MEAN CORPUSCULAR HGB CONC 33.7 g/dL (32.0-36.0); MEAN CORPUSCULAR VOLUME 93 fl (80-97); MONOCYTES % (AUTO) 8.6 % (3-13); RED BLOOD COUNT 4.37 10^6/uL (3.72-5.28); RED CELL DISTRIBUTION WIDTH 13.4 % (11.5-14.0); SEGMENTED NEUTROPHILS % (AUTO) 77.7 % (42-78); WHITE BLOOD COUNT 10.4 10^3/uL (4.0-10.5)
[2017-05-03 05:37] LABS: ALANINE AMINOTRANSFERASE 35 U/L (9-52); ALBUMIN 2.6 g/dL (3.5-5.0); ALKALINE PHOSPHATASE 53 U/L (38-126); ANION GAP 6 (5-19); ASPARTATE AMINO TRANSFERASE 20 U/L (14-36); BILIRUBIN,DIRECT 0.3 mg/dL (0.0-0.4); BILIRUBIN,TOTAL 0.7 mg/dL (0.2-1.3); BLOOD UREA NITROGEN 21 mg/dL (7-20); CARBON DIOXIDE 29 mmol/L (22-30); CHLORIDE 102 mmol/L (98-107); CREATININE RESULT 0.79 mg/dL (0.52-1.25); GLUCOSE 195 mg/dL (75-110); POTASSIUM 4.1 mmol/L (3.6-5.0); SODIUM 136.8 mmol/L (137-145); TOTAL PROTEIN 5.1 g/dL (6.3-8.2)
[2017-05-03] MEDS: CEFAZOLIN SODIUM 2 GM in DEXTROSE 5%-WATER 100 ML IV SCH ×2 (06:28→17:19)
[2017-05-03] MEDS: GABAPENTIN 300 MG CAPSULE PO SCH ×3 (06:28→21:57)
[2017-05-03] MEDS: ENOXAPARIN SODIUM INJ 40 MG/0.4 ML DISP.SYRIN SUBCUT SCH (09:39)
[2017-05-03] MEDS: CILOSTAZOL 100 MG TABLET PO SCH ×2 (09:41→21:57)
[2017-05-03] MEDS: ALLOPURINOL 100 MG TABLET PO SCH (09:41)
[2017-05-03] MEDS: CLOPIDOGREL BISULFATE 75 MG TABLET PO SCH (09:42)
[2017-05-03] MEDS: ASPIRIN 81 MG TABLET, CHEWABLE PO SCH (09:42)
[2017-05-03] MEDS: AMLODIPINE BESYLATE 5 MG TABLET PO SCH (09:42)
[2017-05-03] MEDS: METFORMIN HCL 500 MG TABLET PO SCH (09:42)
[2017-05-03] MEDS: INSULIN LISPRO 100 UNIT/ML 3 ML VIAL SUBCUT SCH ×3 (09:44→17:20)
[2017-05-03] MEDS: HYDROCHLOROTHIAZIDE 25 MG TABLET PO SCH (11:50)
[2017-05-03] MEDS: INSULIN LISPRO 100 UNIT/ML 3 ML VIAL SUBCUT PRN (11:54)
--- NOTE | 2017-05-03 15:14 | PDOC PROGRESS REPORT ---
Subjective Progress Note for:: 05/03/17 Subjective:: She was seen by the bedside, she had episode of paroxysmal atrial fibrillation last night, rate control was achieved with intravenous Cardizem, she is presently normal sinus rhythm she is cardioverted back to sinus rhythm from A. fib. She also has proteinuria associated with hypoalbuminemia, urine protein creatinine ratio is ordered, this correlates with 24 urine protein. She was admitted for the management of Klebsiella bacteremia due to urinary tract infection. Physical Exam Vital Signs: Temp Pulse Resp BP Pulse Ox 98.5 F 83 18 128/36 H 94 05/03/17 10:53 05/03/17 10:53 05/03/17 10:53 05/03/17 10:53 05/03/17 10:53 Intake & Output 05/02/17 05/03/17 05/04/17 06:59 06:59 06:59 Intake Total 1870 922 120 Output Total 1100 200 Balance 770 722 120 Weight 71.4 kg 71.9 kg General appearance: PRESENT: obese Head exam: PRESENT: atraumatic, normocephalic Eye exam: PRESENT: PERRLA Neck exam: PRESENT: full ROM Respiratory exam: PRESENT: clear to auscultation betzaida Cardiovascular exam: PRESENT: RRR, +S1, +S2 Pulses: PRESENT: normal dorsalis pedis pul, +2 pedal pulses bilateral Vascular exam: PRESENT: normal capillary refill GI/Abdominal exam: PRESENT: normal bowel sounds, soft Rectal exam: PRESENT: deferred Neurological exam: PRESENT: alert, CN II-XII grossly intact. ABSENT: motor sensory deficit Results Laboratory Results: 05/03/17 04:35 05/03/17 04:35 05/03/17 05/03/17 04:35 04:35 WBC 10.4 RBC 4.37 Hgb 13.7 Hct 40.5 MCV 93 MCH 31.3 MCHC 33.7 RDW 13.4 Plt Count 120 L Seg Neutrophils % 77.7 Lymphocytes % 11.4 L Monocytes % 8.6 Eosinophils % 1.7 Basophils % 0.6 Absolute Neutrophils 8.1 Absolute Lymphocytes 1.2 Absolute Monocytes 0.9 Absolute Eosinophils 0.2 Absolute Basophils 0.1 Sodium 136.8 L Potassium 4.1 Chloride 102 Carbon Dioxide 29 Anion Gap 6 BUN 21 H Creatinine 0.79 Est GFR ( Amer) > 60 Est GFR (Non-Af Amer) > 60 Glucose 195 H Calcium 10.0 Total Bilirubin 0.7 AST 20 ALT 35 Alkaline Phosphatase 53 Total Protein 5.1 L Albumin 2.6 L 05/01/17 05/01/17 22:50 22:50 Creatine Kinase 127 Troponin I 0.064 NT-Pro-B Natriuret Pep 2060 H Impressions: Chest X-Ray 04/30/17 12:40 IMPRESSION: No significant interval change. No acute changes. Other findings as noted above Abdomen/Pelvis CT 04/30/17 13:39 IMPRESSION: Air is identified in bladder wall consistent with emphysematous cystitis. A 2.1 cm in diameter relative low density mass is identified in the upper pole of the right kidney with CT numbers higher than would be anticipated for simple cyst. This could represent a complicated cyst or solid mass. The possibility of an renal abscess cannot be excluded. Other findings as noted above Abdomen MRI 05/01/17 00:00 IMPRESSION: MULTIPLE CORTICAL CYSTS IN BOTH KIDNEYS. NONENHANCING 1.6 CM LESION IN THE ANTERIOR CORTEX OF THE RIGHT KIDNEY PROBABLY DUE TO A HEMORRHAGIC CYST. 1.2 CM LESION IN THE POSTERIOR CORTEX OF THE RIGHT KIDNEY HAS POSSIBLE PERIPHERAL ENHANCEMENT. POSSIBLY COMPLEX CYST BUT CANNOT EXCLUDE A SMALL TUMOR. RECOMMEND FOLLOWUP MRI IN 6 MONTHS FOR RE-EVALUATION. Assessment & Plan - Diagnosis (1) Sepsis due to urinary tract infection Is this a current diagnosis for this admission?: Yes (2) Diabetes mellitus Qualifiers: Diabetes mellitus type: type 2 Diabetes mellitus complication status: without complication Diabetes mellitus terminal system operator insulin use: without residential use Qualified Code(s): E11.9 - Type 2 diabetes mellitus without complications Is this a current diagnosis for this admission?: Yes (3) Urinary tract infection due to Klebsiella species Is this a current diagnosis for this admission?: Yes (4) Cyst of kidney, acquired Is this a current diagnosis for this admission?: Yes (5) Narrow complex tachycardia Is this a current diagnosis for this admission?: Yes (6) Proteinuria Qualifiers: Proteinuria type: unspecified Qualified Code(s): R80.9 - Proteinuria , unspecified Is this a current diagnosis for this admission?: Yes - Plan Summary Plan Summary: She will continue IV antibiotic, present regimen will be continued
[2017-05-03] MEDS: LOSARTAN POTASSIUM 50 MG TABLET PO SCH (17:21)
[2017-05-03 17:48] LABS: URINE CREATININE 54.9 mg/dL (15-278); URINE PROTEIN 12.5 mg/dL (<12)
[2017-05-03] MEDS: ATORVASTATIN CALCIUM 40 MG TABLET PO SCH (21:56)
[2017-05-03] MEDS: INSULIN GLARGINE,HUM.REC.ANLOG 300 UNIT/3 ML INSULN.PEN SUBCUT SCH (21:56)
--- NOTE | 2017-05-04 03:51 | RADIOLOGY REPORT (SQ) ---
EXAM DESCRIPTION: CHEST SINGLE VIEW COMPLETED DATE/TIME: 05/04/2017 3:36 am REASON FOR STUDY: SOB COMPARISON: 04/30/2017 NUMBER OF VIEWS: One view. TECHNIQUE: Single frontal radiographic view of the chest acquired. LIMITATIONS: None. FINDINGS: LUNGS AND PLEURA: No opacities, masses or pneumothorax. No pleural effusion. Attenuated bl ood vessels and flattened wilson-diaphragms. MEDIASTINUM AND HILAR STRUCTURES: No masses. Contour normal. HEART AND VASCULAR STRUCTURES: Heart normal in size. Normal vasculature. BONES: No acute findings. HARDWARE: None in the chest. OTHER: No other significant finding. IMPRESSION: COPD. NO ACUTE RADIOGRAPHIC FINDING IN THE CHEST. TECHNICAL DOCUMENTATION: JOB ID: [id number] [employer]- All Rights Reserved
[2017-05-04 04:53] LABS: ABSOLUTE BASOPHILS # (AUTO) 0.1 10^3/uL (0.0-0.2); ABSOLUTE EOSINOPHILS # (AUTO) 0.2 10^3/uL (0.0-0.6); ABSOLUTE LYMPHOCYTES (AUTO) 1.1 10^3/uL (0.5-4.7); ABSOLUTE MONOCYTES (AUTO) 1.2 10^3/uL (0.1-1.4); ABSOLUTE NEUT (AUTO) 7.7 10^3/uL (1.7-8.2); BASOPHILS % (AUTO) 0.7 % (0-2); EOSINOPHILS % (AUTO) 2.1 % (0-6); HEMATOCRIT 40.8 % (36.0-47.0); HEMOGLOBIN 13.8 g/dL (12.0-15.5); HGB HCT DIFFERENCE 0.6; LYMPHOCYTES % (AUTO) 10.8 % (13-45); MEAN CORPUSCULAR HEMOGLOBIN 31.3 pg (27.0-33.4); MEAN CORPUSCULAR HGB CONC 33.8 g/dL (32.0-36.0); MEAN CORPUSCULAR VOLUME 93 fl (80-97); MONOCYTES % (AUTO) 11.4 % (3-13); RED CELL DISTRIBUTION WIDTH 13.3 % (11.5-14.0); WHITE BLOOD COUNT 10.3 10^3/uL (4.0-10.5)
[2017-05-04 05:04] LABS: ALANINE AMINOTRANSFERASE 22 U/L (9-52); ALBUMIN 2.8 g/dL (3.5-5.0); ALKALINE PHOSPHATASE 53 U/L (38-126); ANION GAP 6 (5-19); ASPARTATE AMINO TRANSFERASE 18 U/L (14-36); BILIRUBIN,DIRECT 0.3 mg/dL (0.0-0.4); BILIRUBIN,TOTAL 0.6 mg/dL (0.2-1.3); BLOOD UREA NITROGEN 21 mg/dL (7-20); CALCIUM 10.3 mg/dL (8.4-10.2); CARBON DIOXIDE 32 mmol/L (22-30); CHLORIDE 99 mmol/L (98-107); CREATININE RESULT 0.78 mg/dL (0.52-1.25); GLUCOSE 216 mg/dL (75-110); SODIUM 136.6 mmol/L (137-145); TOTAL PROTEIN 5.4 g/dL (6.3-8.2)
[2017-05-04 05:07] LABS: POTASSIUM 4.1 mmol/L (3.6-5.0)
[2017-05-04] MEDS: GABAPENTIN 300 MG CAPSULE PO SCH (05:20)
[2017-05-04] MEDS: CEFAZOLIN SODIUM 2 GM in DEXTROSE 5%-WATER 100 ML IV SCH (05:20)
[2017-05-04] MEDS: METFORMIN HCL 500 MG TABLET PO SCH (08:43)
[2017-05-04] MEDS: CLOPIDOGREL BISULFATE 75 MG TABLET PO SCH (08:43)
[2017-05-04] MEDS: ASPIRIN 81 MG TABLET, CHEWABLE PO SCH (08:44)
[2017-05-04] MEDS: CILOSTAZOL 100 MG TABLET PO SCH (08:44)
[2017-05-04] MEDS: LOSARTAN POTASSIUM 50 MG TABLET PO SCH (08:44)
[2017-05-04] MEDS: ALLOPURINOL 100 MG TABLET PO SCH (08:44)
[2017-05-04] MEDS: AMLODIPINE BESYLATE 5 MG TABLET PO SCH (08:45)
[2017-05-04] MEDS: HYDROCHLOROTHIAZIDE 25 MG TABLET PO SCH (08:45)
[2017-05-04] MEDS: ENOXAPARIN SODIUM INJ 40 MG/0.4 ML DISP.SYRIN SUBCUT SCH (08:45)
[2017-05-04] MEDS: INSULIN LISPRO 100 UNIT/ML 3 ML VIAL SUBCUT SCH (08:50)
[2017-05-04] MEDS: INSULIN LISPRO 100 UNIT/ML 3 ML VIAL SUBCUT PRN (08:50)
--- NOTE | 2017-05-04 11:23 | PDOC DISCHARGE SUMMARY ---
General - Admit/Disc Date/PCP Admission Date/Primary Care Provider: 04/30/17 20:53 GUERRERO SHIRLEY MD Discharge Date: 05/04/17 - Discharge Diagnosis (1) Diabetes mellitus Is this a current diagnosis for this admission?: Yes (2) Narrow complex tachycardia Is this a current diagnosis for this admission?: Yes (3) Cyst of kidney, acquired Is this a current diagnosis for this admission?: Yes (4) Urinary tract infection due to Klebsiella species Is this a current diagnosis for this admission?: Yes (5) Sepsis due to urinary tract infection Is this a current diagnosis for this admission?: Yes (6) Septicemia due to Klebsiella pneumoniae Is this a current diagnosis for this admission?: Yes (7) Proteinuria Is this a current diagnosis for this admission?: Yes (8) Multiple renal cysts Is this a current diagnosis for this admission?: Yes (9) Paroxysmal atrial fibrillation with rapid ventricular response Is this a current diagnosis for this admission?: Yes - Additional Information Discharge Diet: Diabetic Discharge Activity: Activity As Tolerated Home Medications: Allopurinol [Zyloprim 100 mg Tablet] 100 mg PO DAILY 04/30/17 Amlodipine Besylate [Norvasc 5 mg Tablet] 5 mg PO DAILY 04/30/17 Aspirin [Aspirin 81 mg Chewable Tablet] 81 mg PO DAILY 04/30/17 Atorvastatin Calcium [Lipitor 40 mg Tablet] 40 mg PO QHS 04/30/17 Clopidogrel Bisulfate [Plavix 75 mg Tablet] 75 mg PO DAILY 04/30/17 Gabapentin [Neurontin 300 mg Capsule] 300 mg PO Q8 04/30/17 Insulin Aspart [Novolog Flexpen] 12 unit SUBCUT AC 04/30/17 Insulin Glargine,Hum.rec.anlog [Lantus Solostar] 35 unit SQ QHS 04/30/17 Metformin HCl [Glucophage] 1,000 mg PO DAILY 04/30/17 Telmisartan/Hydrochlorothiazid [Micardis HCT 80-25 mg Tablet] 1 tab PO DAILY Ciprofloxacin HCl [Cipro] 500 mg PO BID #14 tablet 05/04/17 History of Present Illness History of Present Illness: SJ LOZOYA is a 86 year old female, She is Dr. Shirley's patient, she came to the emergency room for evaluation of many episodes of passage of non bloody diarrhea, in the emergency room she was evaluated, part of the evaluation included blood work and also CT scan of the abdomen and pelvis with IV contrast , the hemogram showed elevated white cell count, 22,[address] scan showed an incidental finding of a 2.1 cm size relative low density mass in the upper pole of the right kidney,differential diagnosis include a solid mass versus a complicated cyst and a renal abscess could not be completely excluded also found was a fairly diffuse air within the urinary bladder consistent with emphysematous cystitis. Patient is a poor historian she is of advanced age still actively smoking cigarettes, she is a diabetic. I spoke to the son ,he stated that she recently had a vascular procedure done in [facility] in [place], [place] because she has peripheral vascular disease. Because of the severe leukocytosis and the CAT scan findings of severe cystitis and also the abnormal urinalysis the emergency room physician is recommending inpatient care for this patient. Hospital Course Hospital Course: She was admitted for the management of sepsis, blood culture grew Klebsiella pneumonia, urine culture grew Klebsiella pneumonia. She was initially empirically treated with IV Cipro, the bacteria was pansensitive to all antibiotic. Pharmacy is recommending to change antibiotic to IV Ancef. In the emergency room when she presented CAT scan of the abdomen and pelvis was obtained ,showed a 2.1 cm low-density mass in the right kidney, a neoplasm cannot rule out because of these findings MRI of the kidneys was obtained MRI showed multiple cysts in both kidneys. She had episode of paroxysmal atrial fibrillation with rapid irregular response was treated with IV Cardizem with subsequent spontaneous cardioversion to sinus rhythm. This was thought to be due to blood sepsis. Physical Exam Vital Signs: Temp Pulse Resp BP Pulse Ox 98.6 F 84 20 142/50 H 98 05/04/17 08:04 05/04/17 08:04 05/04/17 08:04 05/04/17 08:04 05/04/17 08:04 Intake & Output 05/03/17 05/04/17 05/05/17 06:59 06:59 06:59 Intake Total 922 1734 Output Total 200 300 Balance 722 1434 Weight 71.9 kg 71.6 kg General appearance: PRESENT: no acute distress, well-developed, well-nourished Head exam: PRESENT: atraumatic, normocephalic Eye exam: PRESENT: conjunctiva pink, EOMI, PERRLA Ear exam: PRESENT: normal external ear exam Mouth exam: PRESENT: moist, tongue midline Neck exam: PRESENT: full ROM Respiratory exam: PRESENT: clear to auscultation betzaida Cardiovascular exam: PRESENT: RRR, +S1, +S2 Pulses: PRESENT: normal dorsalis pedis pul, +2 pedal pulses bilateral Vascular exam: PRESENT: normal capillary refill GI/Abdominal exam: PRESENT: normal bowel sounds, soft Rectal exam: PRESENT: deferred Neurological exam: PRESENT: alert, awake, oriented to person, oriented to place , oriented to time, oriented to situation, CN II-XII grossly intact Psychiatric exam: PRESENT: appropriate affect, normal mood Skin exam: PRESENT: dry, intact, warm Results Laboratory Results: 05/04/17 04:31 05/04/17 04:31 05/04/17 05/04/17 04:31 04:31 WBC 10.3 RBC 4.40 Hgb 13.8 Hct 40.8 MCV 93 MCH 31.3 MCHC 33.8 RDW 13.3 Plt Count 127 L Seg Neutrophils % 75.0 Lymphocytes % 10.8 L Monocytes % 11.4 Eosinophils % 2.1 Basophils % 0.7 Absolute Neutrophils 7.7 Absolute Lymphocytes 1.1 Absolute Monocytes 1.2 Absolute Eosinophils 0.2 Absolute Basophils 0.1 Sodium 136.6 L Potassium 4.1 Chloride 99 Carbon Dioxide 32 H Anion Gap 6 BUN 21 H Creatinine 0.78 Est GFR ( Amer) > 60 Est GFR (Non-Af Amer) > 60 Glucose 216 H Calcium 10.3 H Total Bilirubin 0.6 AST 18 ALT 22 Alkaline Phosphatase 53 Total Protein 5.4 L Albumin 2.8 L 05/01/17 05/01/17 22:50 22:50 Creatine Kinase 127 Troponin I 0.064 NT-Pro-B Natriuret Pep 2060 H Impressions: Abdomen/Pelvis CT 04/30/17 13:39 IMPRESSION: Air is identified in bladder wall consistent with emphysematous cystitis. A 2.1 cm in diameter relative low density mass is identified in the upper pole of the right kidney with CT numbers higher than would be anticipated for simple cyst. This could represent a complicated cyst or solid mass. The possibility of an renal abscess cannot be excluded. Other findings as noted above Abdomen MRI 05/01/17 00:00 IMPRESSION: MULTIPLE CORTICAL CYSTS IN BOTH KIDNEYS. NONENHANCING 1.6 CM LESION IN THE ANTERIOR CORTEX OF THE RIGHT KIDNEY PROBABLY DUE TO A HEMORRHAGIC CYST. 1.2 CM LESION IN THE POSTERIOR CORTEX OF THE RIGHT KIDNEY HAS POSSIBLE PERIPHERAL ENHANCEMENT. POSSIBLY COMPLEX CYST BUT CANNOT EXCLUDE A SMALL TUMOR. RECOMMEND FOLLOWUP MRI IN 6 MONTHS FOR RE-EVALUATION. Chest X-Ray 05/04/17 00:00 IMPRESSION: COPD. NO ACUTE RADIOGRAPHIC FINDING IN THE CHEST.
[2017-05-04 11:44] VITALS: BP 102/47
--- NOTE | 2017-05-04 13:47 | EKG REPORT ---
SEVERITY:- ABNORMAL ECG - ATRIAL FIBRILLATION WITH RAPID V-RATE REPOLARIZATION ABNORMALITY, PROB RATE RELATED : Confirmed by: Fauzia Montero MD 04-May-2017 13:46:26
== END 2017-05-04 12:45 | disposition home or self-care (01) | DRG 872 ==
LOC: ER 12:37 → UNDOADMIN 15:18 → EH 15:18 → 3W 16:38 → EH 16:38 → 3W 20:53
PROVIDERS: ADMIT Internal Medicine; ATTEND Internal Medicine
DX: A41.89 Other specified sepsis (principal); N39.0 Urinary tract infection, site not specified; E78.5 Hyperlipidemia, unspecified; I10 Essential (primary) hypertension; E11.9 Type 2 diabetes mellitus without complications; N28.89 Other specified disorders of kidney and ureter; B96.1 Klebsiella pneumoniae [K. pneumoniae] as the cause of diseases classified elsewhere; R00.0 Tachycardia, unspecified; I48.91 Unspecified atrial fibrillation; R80.9 Proteinuria, unspecified; N28.1 Cyst of kidney, acquired; F17.210 Nicotine dependence, cigarettes, uncomplicated; Z79.01 Long term (current) use of anticoagulants; Z79.82 Long term (current) use of aspirin; Z79.4 Long term (current) use of insulin; Z79.84 Long term (current) use of oral hypoglycemic drugs; Z79.899 Other long term (current) drug therapy; Z86.73 Personal history of transient ischemic attack (TIA), and cerebral infarction without residual deficits
CPT/HCPCS: 36415; 51701; 71010; 74177; 74183; 80048; 80053; 80061; 80076; 80307; 81001; 82140; 82150; 82550; 82570; 82803; 82962; 83036; 83605; 83690; 83880; 84156; 84439; 84443; 84484; 85025; 85610; 87040; 87077; 87086; 87088; 87186; 93005; 93010; 96365; 99291; A9576; G8978-GP; G8979-GP; J0690; J0696; J0744; J1650; J1815; J2543; J3490; J7030

== ENCOUNTER → 2017-06-13 | Outpatient (CLI) | payer MEDICARE, OTHER ==
--- NOTE | 2017-06-13 14:27 | RADIOLOGY REPORT (SQ) ---
EXAM DESCRIPTION: CT HEAD WITHOUT COMPLETED DATE/TIME: 06/13/2017 12:42 pm REASON FOR STUDY: DISORIENTATION, UNSPEC (R41.0) R41.0 DISORIENTATION, UNSPECIFIED COMPARISON: CT brain 10/10/2010, 12/20/2010, 02/21/2015 TECHNIQUE: Axial images acquired through the brain without intravenous contrast. Images reviewed wi th bone, brain and subdural windows. Images stored on PACS. All CT scanners at this facility use dose modulation, iterative reconstruction, and/or weight based d osing when appropriate to reduce radiation dose to as low as reasonably achievable (ALARA). [facility]: Dose Right [facility]: CareDose [facility]: Dose Right [facility]: Teradose 4D [facility]: [employer] RADIATION DOSE: Up-to-date CT equipment and radiation dose reduction techniques were employed. CTDIv ol: 49.0 mGy. DLP: 979 mGy-cm. mGy. LIMITATIONS: Motion artifact, patient scanned twice FINDINGS: VENTRICLES: Normal size and contour. CEREBRUM: No masses. No acute hemorrhage. No midline shift. No evidence for acute infarction. Ther e is moderate bifrontal and biparietal chronic low attenuation from small vessel disease. 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 Benign-appearing dystrophic c alcifications inferior left frontal lobe unchanged from 2009 CEREBELLUM: No masses. No hemorrhage. No alteration of density. No evidence for acute infarction. EXTRAAXIAL SPACES: No fluid collections. No masses. ORBITS AND GLOBE: No intra- or extraconal masses. Normal contour of globe without masses. CALVARIUM: No fracture. PARANASAL SINUSES: No fluid or mucosal thickening. SOFT TISSUES: No mass or hematoma. OTHER: No other significant finding. IMPRESSION: No acute findings. COMMENT: Quality ID # [id number]: Final reports with documentation of one or more dose reduction techniques (e.g., Automated exposure control, adjustment of the mA and/or kV according to patient size, use of iterative reconstruction technique) TECHNICAL DOCUMENTATION: JOB ID: [id number] [employer]- All Rights Reserved
== END ==
LOC: RAD 12:24
PROVIDERS: ATTEND Physician Assistant
DX: R41.0 Disorientation, unspecified (principal)
CPT/HCPCS: 70450